=== PATIENT | male | born 1965 | race Caucasian/White ===

== ENCOUNTER → 2016-10-07 | Outpatient (CLI) | payer BC ==
[~2016-10-07] MED LIST: AMBIEN 10MG10 MG PO; AMITRIPTYLINE H25 M1 PO; CADUET 5 MG-201 TAB PO; DEPO-TESTOS200 MG/M1 IM; HCTZ 25MG TAB25 MG PO; LEXAPRO10 MG PO; LIPITOR 10MG10 MG PO; PERCOCET 325 MG1 TA2 PO; PREDNISONE20 MG PO; PRINIVIL40 MG PO; PROAIR HFA0.09 MG/AC IH; SULFAMETH/TRIME1 TA1 PO; TUSS PO; Testosterone IM; ULTRAM 50MG TAB50 MG PO; ZITHROMAX Z PA250 MG PO
== END ==
LOC: BHSO 16:19
DX: F41.1 Generalized anxiety disorder (principal)

== ENCOUNTER → 2017-03-12 | Outpatient (CLI) | payer BC | LOC: BHSO 08:53 | DX: F41.1 Generalized anxiety disorder (principal) ==

== ENCOUNTER → 2017-09-10 | Outpatient (CLI) | payer BC | LOC: BHSO 16:19 | DX: F41.1 Generalized anxiety disorder (principal) ==

== ENCOUNTER 2024-07-16 22:00 | Emergency (ER) | payer BC ==
[~2024-07-16] VITALS: Ht 182.9 cm; Wt 136.4 kg
[2024-07-16 22:06] VITALS: TEMP 98.4
[2024-07-16 23:51] LABS: BASO # 0.1 K/mm3 (0.0-0.2); BASO % 0.6 % (0.0-2.0); EOS # 0.3 K/mm3 (0.0-0.7); EOS % 2.3 % (0.0-4.0); GRAN # 7.1 K/mm3 (1.4-6.5); GRAN % 65.2 % (42.2-75.2); HEMATOCRIT 43.2 % (42.0-52.0); HEMOGLOBIN 14.7 g/dl (13.5-18.0); LYMPH # 2.5 K/mm3 (1.2-3.4); LYMPH % 22.6 % (20.0-51.0); MEAN CELL VOLUME 89 fl (80.0-100.0); MEAN CORPUSCULAR HEMOGLOBIN 30 pg (27-31); MEAN CORPUSCULAR HGB CONC 34 g/dl (33.0-37.0); MEAN PLATELET VOLUME 9.3 fl (7.4-10.4); PLATELET COUNT 235 K/mm3 (130-400); RED BLOOD COUNT 4.83 M/mm3 (4.20-5.60); REDCELL DISTRIBUTION WIDTH-CV 13.1 % (11.5-14.5)
[2024-07-17 00:07] LABS: ALBUMIN 3.6 g/dL (3.4-4.8); BILIRUBIN,TOTAL 0.5 mg/dL (0.2-1.2); CALCIUM 9.8 mg/dL (8.4-10.2); CREATININE, serum 1.19 mg/dL (0.72-1.25); POTASSIUM 3.8 mEq/L (3.5-4.5); TOTAL PROTEIN 7.1 g/dl (6.2-8.1)
[2024-07-17] MEDS ORDERED: LIPITOR 40MG TA40 MG PO (00:09)
[2024-07-17] MEDS ORDERED: NORVASC 5MG5 MG/TAB PO (00:09)
[2024-07-17] MEDS ORDERED: PRINIVIL40 MG PO (00:09)
[2024-07-17] MEDS ORDERED: AMBIEN 10MG10 MG PO (00:10)
[2024-07-17 00:14] LABS: TROPONIN-I 0.011 ng/mL (0.00-0.033)
[2024-07-17] MEDS ORDERED: diphenhydrAMINE Oral Soln 12.5 MG/5 ML UD PO ONE (00:30)
[2024-07-17] MEDS ORDERED: Lidocaine 2% Viscous 15 ML UNIT DOSE MM ONE (00:30)
[2024-07-17] MEDS ORDERED: Famotidine 20 MG TAB PO ONE (00:30)
[2024-07-17] MEDS ORDERED: Mag/Al Hydrox/Simeth Susp 30 ML CUP PO ONE (00:30)
[2024-07-17 01:41] VITALS: BP 145/96; PULSE 68
== END 2024-07-17 01:42 | disposition home or self-care (01) ==
LOC: COL.ER 22:00
PROVIDERS: Nurse Practitioner Primary Care
DX: R07.9 Chest pain, unspecified (principal)